=== PATIENT | male | born 1960 | race Caucasian/White ===

== ENCOUNTER 2016-07-03 06:22 | Observation (INO) | payer OTHER ==
[~2016-07-03] VITALS: Ht 175.3 cm; Wt 81.7 kg
[~2016-07-03 06:22] MED LIST: CICL160A INH; FRS/40 PO; FURO40TA3 PO; IPRASOL4 INH; LACTATED RINGER'S 1000ML 1,000 ML IV SCH; LACTATED RINGER'S 1000ML IV SCH; LEDI1TAB PO; LISI-729 PO; MAGN1TAB19 PO; MISSING PHYSICIAN SIGNATURE ON ORDER SCH; MTR/600 PO; PARO1TAB27 PO; POTA20TA16 PO; VANCOMYCIN 1GM/270ML NSS 270 ML IV SCH; VANCOMYCIN 1GM/270ML NSS IV SCH; VITA60003 TOP
[2016-07-03 06:42] VITALS: BP 119/78; PULSE 66; TEMP 36.3; O2SAT 97; Ht 175.3 cm; Wt 81.7 kg
[2016-07-03] MEDS ORDERED: LIDOCAINE HCL 1% 20 ML VIAL ONE ×2 (07:20→07:21)
[2016-07-03] MEDS ORDERED: BACITRACIN 50000 UNIT VIAL ONE (07:20)
[2016-07-03] MEDS ORDERED: BACITRACIN OINT 0.9 GM PKT ONE (07:20)
[2016-07-03] MEDS ORDERED: FENTANYL CITRATE INJ 50 MCG/1 ML 2 ML VIAL ONE (08:36)
[2016-07-03] MEDS ORDERED: MIDAZOLAM HCL 5 MG/ML 1 ML VIAL ONE (08:36)
--- NOTE | 2016-07-03 09:28 | Procedure Note ---
Pre-Mod Sedation Assessment General Date of Moderate Sedation: Jul 03, 2016. Vital Signs: Vital Signs Past 12 Hours Date Time Temp Pulse Resp B/P Pulse Ox O2 Delivery O2 Flow Rate FiO2 07/03/16 06:42 36.3 66 22 119/78 97 Review Cardiovascular: regular rate, rhythm Abdomen: normal bowel sounds Lungs: lungs clear Pre-Sedation Airway Assessment Oral Cavity: Dentures Smoking Status: Current Every Day Smoker Procedure Planning Contraindications-for Mod Sed: None Yes Notes The planned sedation has been discussed with the patient and consent obtained. I have identified the patient, determined the appropriateness of sedation and have assessed the patient immediately prior to the procedure. All medicine(s) and interventions are by my order.
--- NOTE | 2016-07-03 10:48 | Procedure Note ---
Post-Mod Sedation Assessment General Date of Moderate Sedation Jul 03, 2016. Vital Signs: Vital Signs Past 12 Hours Date Time Temp Pulse Resp B/P Pulse Ox O2 Delivery O2 Flow Rate FiO2 07/03/16 10:40 65 20 102/69 95 Room Air 07/03/16 06:42 36.3 66 22 119/78 97 Review - Discharge Criteria Vital Signs Stable: Yes Alert/Oriented/Conversant: Yes Returned to Baseline Mental St: Yes Nausea Absent/Minimal: Yes Pain/Discomfort/Absent/Minimal: Yes Normal/Baseline Respirations: Yes Active Bleeding?: No
--- NOTE | 2016-07-03 10:50 | Cardiology Procedure Brief Nt ---
Preliminary Cardiology Note Procedure Date Jul 03, 2016. Pre-Procedure Diagnosis nonischemic cardiomyopathy Post-Procedure Diagnosis same Procedure(s) Performed Left subclavian venogram Dual-chamber ICD implantation Form [employer]ter [employer] Forms Dr. Hidalgo Manager Process Improvement(s) none Estimated Blood Loss 100 cc Preliminary Findings Good lead position, good measurements Recommendations Monitor overnight Specimens None Anesthesia local with sedation Complication(s) None Disposition Health Clinician recovery
[2016-07-03] MEDS ORDERED: ACETAMINOPHEN 325 MG TAB PO PRN (11:00)
[2016-07-03] MEDS ORDERED: KETOROLAC TROMETHAMINE 10 MG TAB PO PRN (11:00)
[2016-07-03] MEDS ORDERED: IV FLUIDS COMPLETED PRN (12:45)
--- NOTE | 2016-07-03 13:05 | OPERATIVE REPORT ---
DATE OF OPERATION: 07/03/2016 AMBULATORY OPERATIVE REPORT PREOPERATIVE DIAGNOSES: 1. Ischemic cardiomyopathy. 2. Congestive heart failure. 3. Sinus bradycardia. POSTOPERATIVE DIAGNOSES: Same. PROCEDURE: 1. Left subclavian venogram. 2. Dual-chamber ICD implantation. SURGEON: Bret Hidalgo MD. ANESTHESIA: Local with sedation. HISTORY: This is a 56-year-old male, incarcerated, who has a history of non-Hodgkin's lymphoma and longstanding congestive heart failure and left ventricular dysfunction. He has a left ventricular ejection fraction of 20%, has class II congestive heart failure symptoms. He has failed attempts at treatment with heart failure medications due to hypotension, he is currently on low dose lisinopril. His heart rate is somewhat low, which may be one of the reasons he has difficulty with beta blockade. He is, therefore, being brought to laboratory for ICD implantation for primary prevention of sudden cardiac , a dual-chamber pacemaker will be used in hopes of maintaining his heart rate and allowing use of beta blockade. After obtaining informed consent for the procedure, he was brought to the laboratory on the morning of 07/03/2016, being NPO after midnight. He was identified in the laboratory, prepped and draped in standard sterile manner for left-sided ICD implantation. The left prepectoral region was anesthetized with 1% lidocaine local anesthetic and left subclavian venipuncture was attempted, this was not successful, therefore, dye was injected via the left arm IV site to opacify the left subclavian vein. Once the left subclavian vein was identified, venous access was obtained by percutaneous technique and a guidewire placed through the left subclavian vein into the superior vena cava. The area was further infiltrated with 1% lidocaine local anesthetic and a 5 cm incision was made parallel to the left clavicle and 2 cm below it and carried down to the anterior pectoralis fascia. An ICD pocket was formed by blunt dissection anterior to the pectoralis fascia and a bacitracin-soaked sponge (50,000 units in 50 mL normal saline solution) was placed in the pocket. A 10.5-Nepales[place] Medtronic lead introducer was placed over the guidewire into the left subclavian vein, the dilator and guidewire were removed, and a bipolar dual-coil active fixation steroid-tipped ventricular lead was advanced through the introducer into the superior vena cava. A guidewire was placed through the introducer and introducer stripped away from lead and guidewire. An 8-[place] Medtronic lead introducer was placed over the guidewire into the left subclavian vein, the dilator and guidewire were removed, and a bipolar active fixation steroid-tipped atrial lead was advanced through introducer into the superior vena cava. The guidewire was placed through the introducer and introducer stripped away from lead and guidewire. Using a curved stylette, the ventricular lead was advanced through the right ventricular outflow tract into the pulmonary artery, and then using a straight stylette, was positioned in the right ventricular apex. Once in position, the ventricular pacing threshold was evaluated in bipolar configuration at a pulse width of 0.5 milliseconds. The final ventricular pacing threshold was 0.5 volts with a current of 1.4 milliamp, 5-volt lead impedance was 384 ohms, and R-waves were sensed at 5.5 millivolts. Diaphragmatic pacing was not present with a 10 volt bipolar output. The atrial lead was positioned in the region of the atrial appendage and a screw extended fixing the lead in position. The atrial pacing threshold was evaluated in bipolar configuration at a pulse width of 0.5 milliseconds. Final atrial pacing threshold was 0.9 volts with a current of 1.9 milliamp, 5-volt lead impedance was 549 ohms, and P-waves were sensed at 5.6 millivolts. Diaphragmatic pacing was not present with a 10 volt bipolar output. Once leads were in position, they were attached to the anterior pectoralis fascia using 2 sutures of 2-0 silk around each lead collar. The bacitracin-soaked sponge was removed from the pocket, there was a fair amount of bleeding from the venous insertion site, therefore, a pursestring suture of 2-0 Vicryl was placed around the venous insertion site to control backbleeding. There was also a fair amount of oozing from the pocket, therefore, Jorge was distributed in the pocket to help clotting. The ICD was then placed in the pocket with the leads coiled beneath it and the incision was closed with a running double subcutaneous closure of 3-0 Vicryl, followed by running subcuticular skin closure of 4-0 Vicryl. Bacitracin ointment was placed on incision and a pressure dressing applied. The patient tolerated the procedure well, there were no complications, and estimated blood loss was 100 mL. The patient was transferred to the civil laboratory technician recovery room and later will be transferred to telemetry. The atrial lead is a Medtronic model 5076, serial #[id number], and is a bipolar active fixation steroid-tipped MRI compatible lead. The ventricular lead is a Medtronic model 6947M, serial #[id number], and is a bipolar active fixation steroid-tipped dual-coil ICD lead. The ICD is a Medtronic Evera MRI XT DR Frazier, model MUFZ5R8, serial #[id number]. The ICD was reprogrammed in the laboratory to final settings. JARON
[2016-07-03 13:35] VITALS: BP 113/69; PULSE 63; TEMP 36.8; O2SAT 99
[2016-07-03] MEDS ORDERED: VANCOMYCIN INJ 1,000 MG in SODIUM CHLORIDE 0.9% 250ML 250 ML IV SCH (19:00)
[2016-07-04] MEDS ORDERED: CLR10 PO (01:46)
[2016-07-04] MEDS ORDERED: UMEC1INH INH (01:46)
[2016-07-04] MEDS ORDERED: PRVHFAIN INH (01:46)
[2016-07-04] MEDS ORDERED: LSN25 PO (01:46)
[2016-07-04] MEDS ORDERED: BUME1TAB PO (01:46)
[2016-07-04] MEDS ORDERED: LEVO-366 PO (02:32)
--- NOTE | 2016-07-04 08:41 | Discharge Summary ---
Discharge Summary Admission Date: Jul 03, 2016 at 10:54 Discharge Date: Jul 03, 2016 Primary Diagnosis: Ischemic cardiomyopathy Secondary Diagnoses/Problems: Medical Problems: (1) Acute bronchitis Status: Acute (2) Cardiomyopathy Status: Acute (3) Non-cardiac chest pain Status: Acute Procedures: Dual-chamber ICD implantation Discharge Instructions Last Recorded Wt (Kilograms): 81.65 Activity Recommendations: limitations as noted below Diet At Discharge: resume previous diet Allergies: Coded Allergies: Penicillins (Verified Allergy, Unknown, UNKNOWN, 07/04/16) Additional Instructions: ACTIVITY RECOMMENDATIONS: * Do not raise affected arm over head for 2 weeks. SPECIAL CARE INSTRUCTIONS: * If bleeding occurs, apply direct pressure to area for 5 minutes. * Call your doctor if you have severe pain, fever, drainage or bleeding at site. * Keep dressing on and dry for 48 hours then remove. * Keep any scheduled doctor's appointment. * Implant Card - hand held device with website information given. SKIN IRRITATION: * You may experience some redness and/or swelling in the area where radiation was administered. If any skin irritation occurs, please contact your family physician. FOLLOW UP VISIT: Keep any scheduled doctor appointments. Special Care: Call your doctor if: * Temperature above 101 degrees * Pain not relieved by pain medicine ordered * There is increased drainage or redness from any incision * You have any unanswered questions or concerns. Avoid all tobacco products. If you need help to stop smoking, call [place]'s FREE QUITLINE at . This is a free call. Admission HPI This is an incarcerated 56-year-old gentleman who was referred for evaluation for ICD implantation for cardiomyopathy. We have essentially no records, he is reported as having either Hodgkin's or non-Hodgkin's lymphoma, as well as a history of congestive heart failure and left ventricular dysfunction. He is reported as having an ejection fraction of 20%, but does not have a lot of heart failure symptoms but does have difficulty with strenuous exertion and is at least class II in terms of heart failure symptoms. He had failed attempts at treatment with medications due to hypotension, he is currently on lisinopril in an attempt to get him back on heart failure medications. He seems to tolerating that well at low dose. He has never had lightheadedness, dizziness or palpitations and reports no syncope or presyncope. Admission Physical Exam Constitutional: Alert, cooperative and in no distress. HEENT: Unremarkable Neck: No jugular venous distention, carotid pulses are normal and equal bilaterally without bruits. Pulmonary: Clear to auscultation bilaterally. Cardiac: Regular rhythm with no murmur, gallop or rub. Abdomen: Soft, nontender with normal bowel sounds. Extremities: No edema. Distal pulses intact. Neurologic: No focal findings. Gait is steady. Skin: No rash, ecchymoses or petechiae. Hospital Course Patient is a 56-year-old male with ischemic cardiomyopathy and class II congestive heart failure who underwent dual-chamber ICD implantation on 07/03/[address] Hidalgo. He tolerated the procedure well, but he subsequently signed out AMA later that evening. He did not receive the adequate post-operative antibiotics, a chest x-ray was unable to be obtained to check for lead placement or pneumothorax, and his device was unable to be interrogated prior to the patient leaving AMA. Total time spent on discharge = This includes examination of the patient, discharge planning, medication reconciliation, and communication with other providers.
[2016-07-04] MEDS ORDERED: FUROSEMIDE 40 MG TAB PO SCH (09:00)
[2016-07-04] MEDS ORDERED: POTASSIUM CHLORIDE 20 MEQ TABCR PO SCH (09:00)
[2016-07-04] MEDS ORDERED: LISINOPRIL 2.5 MG TAB PO SCH (09:00)
[2016-07-04] MEDS ORDERED: PAROXETINE 20 MG TAB PO SCH (09:00)
== END 2016-07-03 14:30 ==
LOC: C.ACU 06:22 → C.2E 10:54
PROVIDERS: ADMIT Internal Medicine Cardiovascular Disease; ATTEND Internal Medicine Cardiovascular Disease
DX: I25.5 Ischemic cardiomyopathy (principal); I50.9 Heart failure, unspecified; R00.1 Bradycardia, unspecified; J43.9 Emphysema, unspecified; Z88.0 Allergy status to penicillin; Z85.71 Personal history of Hodgkin lymphoma

== ENCOUNTER 2016-07-03 23:54 | Emergency (ER) | payer OTHER ==
[~2016-07-03] VITALS: Ht 175.3 cm; Wt 82.0 kg
[~2016-07-03 23:54] MED LIST changes: -LACTATED RINGER'S 1000ML 1,000 ML IV SCH; -LACTATED RINGER'S 1000ML IV SCH; -MISSING PHYSICIAN SIGNATURE ON ORDER SCH; -VANCOMYCIN 1GM/270ML NSS 270 ML IV SCH; -VANCOMYCIN 1GM/270ML NSS IV SCH
[2016-07-04 00:04] VITALS: TEMP 39; Ht 175.3 cm; Wt 82.0 kg
[2016-07-04] MEDS ORDERED: ALBUT/IPRATROP 3MG/0.5MG NEB 3 ML VIAL INH STA (00:35)
--- NOTE | 2016-07-04 00:42 | EMERGENCY ROOM VISIT NOTE ---
History Report prepared by Ronal: Jeff Lyman Under the Supervision of: Dr. Jose Moon D.O. First contact with patient: 00:30 Chief Complaint: FLU LIKE SX Stated Complaint: FEVER,CHILLS,RESPIRATORY History of Present Illness The patient is a 56 year old male who presents to the Emergency Room with complaints of a fever that the patient first noticed at 2130, three hours prior to arrival. The patient had surgery to place a defibrillator this morning, and was then discharged back to the correctional facility where he [facility]. The patient is also experiencing a persistent cough. This is not unusual with his history of emphysema and chronic obstructive pulmonary disease. He received a breathing treatment at the [facility] at 2230, two hours prior to arrival. He does have a history of one episode of pneumonia. Source of History: patient Onset: Three hours PRESSURE TESTER Position: other (Global) Quality: other (Fever) Associated Symptoms: + cough Review of Systems See HPI for pertinent positives and negatives. A total of ten systems were reviewed and were otherwise negative. Past Medical & Surgical Medical Problems: (1) History of cancer (2) Nonischemic cardiomyopathy (3) Spinal stenosis Family History Patient reports no known family medical history. Social History Smoking Status: Current Every Day Smoker Alcohol Use: none Drug Use: none Marital Status: single Housing Status: other Occupation Status: other Current/Historical Medications Scheduled Bumetanide (Bumex), 2 MG PO BID Ciclesonide (Alvesco), 1 PUFF INH BID Lisinopril (Lisinopril), 2.5 MG PO DAILY Magnesium Oxide (Mg Supplement (Magnesium Oxide), 800 MG PO DAILY Paroxetine (Paxil), 20 MG PO DAILY Potassium Ext Rel (Klor-Con), 40 MEQ PO BID Umeclidinium Mcdermott (Incruse Ellipta), 1 PUFF INH DAILY Scheduled PRN Albuterol (Ventolin Hfa), 2 PUFFS INH QID PRN for Shortness of Breath Ibuprofen (Ibuprofen), 600 MG PO BID PRN for Pain Ipratropium-Albuterol (Duoneb), 1 TREATMENT INH BID PRN for Shortness of Breath Loratadine (Claritin), 10 MG PO DAILY PRN for ALLERGIC REACTION Vitamin E (Topical) (E-Cream), 1 APPLN TOP DAILY PRN for IRRITATION Allergies Coded Allergies: Penicillins (Verified Allergy, Unknown, UNKNOWN, 3/17/17) Physical Exam Vital Signs Date Time Temp Pulse Resp B/P Pulse Ox O2 Delivery O2 Flow Rate FiO2 07/04/16 02:23 75 22 95/66 92 Room Air 07/04/16 01:41 80 20 91 Room Air 07/04/16 01:15 90 07/04/16 01:15 78 16 112/76 95 Room Air 07/04/16 01:05 98 Room Air 07/04/16 00:04 39.0 84 20 133/87 97 Room Air Physical Exam GENERAL: Awake, alert, well-appearing, in no distress HENT: Normocephalic, atraumatic. Oropharynx unremarkable. EYES: Normal conjunctiva. Sclera non-icteric. NECK: Supple. No nuchal rigidity. FROM. No JVD. RESPIRATORY: Rhonchi bilaterally. CARDIAC: Regular rate, normal rhythm. Extremities warm and well perfused. Pulses equal. CHEST: There is a surgical site present over the left chest, clean, dry, intact , and bandaged. There is an area of swelling below the site. ABDOMEN: Soft, non-distended. No tenderness to palpation. No rebound or guarding. No masses. RECTAL: Deferred. MUSCULOSKELETAL: Chest examination reveals no tenderness. The back is symmetrical on inspection without obvious abnormality. There is no CVA tenderness to palpation. No joint edema. LOWER EXTREMITIES: Calves are equal size bilaterally and non-tender. No edema. No discoloration. NEURO: Normal sensorium. No sensory or motor deficits noted. SKIN: No rash or jaundice noted. Medical Decision & Procedures ER Provider Diagnostic Interpretation: X ray results as stated below per my interpretation and radiologist interpretation. Other radiology results as stated below per my review and radiologist interpretation CHEST X-RAY: Pacemaker in good position and intact, slight increased pulmonary markings bilateral lower lobes. Laboratory Results 07/04/16 00:50 Red Blood Count 3.91, Mean Corpuscular Volume 90.0, Mean Corpuscular Hemoglobin 31.7, Mean Corpuscular Hemoglobin Concent 35.2, Mean Platelet Volume 9.5, Neutrophils (%) (Auto) 75.8, Lymphocytes (%) (Auto) 15.0, Monocytes (%) (Auto) 7.9, Eosinophils (%) (Auto) 0.9, Basophils (%) (Auto) 0.1, Neutrophils # (Auto) 5.12, Lymphocytes # (Auto) 1.01, Monocytes # (Auto) 0.53, Eosinophils # (Auto) 0.06, Basophils # (Auto) 0.01 07/04/16 00:50 Test 07/04/16 00:50 07/04/16 01:05 07/04/16 01:38 White Blood Count 6.75 K/uL (4.8-10.8) Red Blood Count 3.91 M/uL (4.7-6.1) Hemoglobin 12.4 g/dL (14.0-18.0) Hematocrit 35.2 % (42-52) Mean Corpuscular Volume 90.0 fL (80-100) Mean Corpuscular Hemoglobin 31.7 pg (25-34) Mean Corpuscular Hemoglobin Concent 35.2 g/dl (32-36) Platelet Count 70 K/uL (130-400) Mean Platelet Volume 9.5 fL (7.4-10.4) Neutrophils (%) (Auto) 75.8 % Lymphocytes (%) (Auto) 15.0 % Monocytes (%) (Auto) 7.9 % Eosinophils (%) (Auto) 0.9 % Basophils (%) (Auto) 0.1 % Neutrophils # (Auto) 5.12 K/uL (1.4-6.5) Lymphocytes # (Auto) 1.01 K/uL (1.2-3.4) Monocytes # (Auto) 0.53 K/uL (0.11-0.59) Eosinophils # (Auto) 0.06 K/uL (0-0.5) Basophils # (Auto) 0.01 K/uL (0-0.2) RDW Standard Deviation 53.6 fL (36.4-46.3) RDW Coefficient of Variation 16.2 % (11.5-14.5) Immature Granulocyte % (Auto) 0.3 % Immature Granulocyte # (Auto) 0.02 K/uL (0.00-0.02) Anion Gap 8.0 mmol/L (3-11) Est Creatinine Clear Calc Drug Dose 103.0 ml/min Estimated GFR () 116.2 Estimated GFR (Non- 100.3 BUN/Creatinine Ratio 20.7 (10-20) Calcium Level 8.0 mg/dl (8.5-10.1) Total Bilirubin 1.4 mg/dl (0.2-1) Direct Bilirubin 0.6 mg/dl (0-0.2) Aspartate Amino Transf (AST/SGOT) 55 U/L (15-37) Alanine Aminotransferase (ALT/SGPT) 26 U/L (12-78) Alkaline Phosphatase 75 U/L (45-117) Total Protein 5.4 gm/dl (6.4-8.2) Albumin 3.2 gm/dl (3.4-5.0) Urine Color YELLOW Urine Appearance CLEAR (CLEAR) Urine pH 8.0 (4.5-7.5) Urine Specific [place] 1.013 (1.000-1.030) Urine Protein NEG (NEG) Urine Glucose (UA) NEG (NEG) Urine Ketones NEG (NEG) Urine Occult Blood NEG (NEG) Urine Nitrite NEG (NEG) Urine Bilirubin NEG (NEG) Urine Urobilinogen NEG (NEG) Urine Leukocyte Esterase NEG (NEG) Bedside Lactic Acid Venous 1.33 mmol/L (0.90-1.70) Laboratory results reviewed by me Medications Administered Medications (Trade) Dose Ordered Sig/María Route Start Time Stop Time Status Last Admin Dose Admin Albuterol/ Ipratropium (Duoneb) 3 ml NOW STAT INH 07/04/16 00:35 07/04/16 00:38 DC 07/04/16 00:35 3 ML ECG Indication: other (Fever) Rate (beats per minute): 89 Rhythm: sinus rhythm Findings: other (LAD, poor R-wave progression in precordium) ED Course 0033: The patient was evaluated in room B6. A complete history and physical exam was performed. 0035: Ordered Duoneb 3 mL INH. 0147: I checked on the patient at this time, he was resting in bed. 0156: I evaluated the documentation from the patient's defibrillator placement at this time. Dr. Hidalgo placed the defibrillator. I will contact him to discuss the patient's case. 0204: I discussed the case with Dr. Crespo - Cardiology at this time. He is awake of the patient's evaluation. Medical Decision Differential diagnosis includes: pneumonia, upper respiratory infection, and early sepsis. Patient remained in stable condition patient has no evidence of septic shock at this time. I have discussed the case with the cardiology group at 2 AM. I do not suspect a pouch infection at this time. Patient is a COPD patient likely has bronchitis at this time. I we will treat the patient with antibiotics empirically and the patient will be returned to the retirement. Consults Time Called: [phone] Consulting Physician: Dr. Crespo - Cardiology Returned Call: [phone] I discussed the case with Dr. Crespo - Cardiology at this time. He is awake of the patient's evaluation. Impression Primary Impression: Acute bronchitis Additional Impression: Chronic obstructive pulmonary disease Scribe Attestation The scribe's documentation has been prepared under my direction and personally reviewed by me in its entirety. I confirm that the note above accurately reflects all work, treatment, procedures, and medical decision making performed by me. Departure Information Dispostion Home / Self-Care Prescriptions Levofloxacin (Levaquin) 500 Mg Tab 500 MG PO DAILY for 9 Days, #10 TAB Prov: Jose Moon, DO 07/04/16 Referrals Tony Roman PA-C (PCP) Patient Instructions Bronchitis Acute, My [facility] Additional Instructions Follow-up primary care physician; continue antibiotics return if worsening symptoms or follow up with automotive software engineer as scheduled next week Problem Qualifiers Primary Impression: Acute bronchitis Bronchitis organism: unspecified organism Qualified Codes: J20.9 - Acute bronchitis, unspecified Additional Impression: Chronic obstructive pulmonary disease COPD type: emphysema Emphysema type: unspecified Qualified Codes: J43.9 - Emphysema, unspecified
[2016-07-04 01:05] VITALS: O2SAT 98
[2016-07-04 01:18] LABS: BASO % 0.1 %; BASO ABS # 0.01 K/uL (0-0.2); COMPLETE YES; EOS % 0.9 %; HEMATOCRIT 35.2 % (42-52); IG% 0.3 %; LYMPH ABS # 1.01 K/uL (1.2-3.4); MEAN CORPUSCULAR HEMOGLOBIN 31.7 pg (25-34); MEAN CORPUSCULAR HGB CONC 35.2 g/dl (32-36); MEAN PLATELET VOLUME 9.5 fL (7.4-10.4); MONO % 7.9 %; NEUT % 75.8 %; PLATELET COUNT 70 K/uL (130-400); RED BLOOD COUNT 3.91 M/uL (4.7-6.1); WHITE BLOOD COUNT 6.75 K/uL (4.8-10.8)
[2016-07-04 01:39] LABS: BUN/CREATININE RATIO 20.7 (10-20); CREATININE 0.82 mg/dl (0.60-1.40); POTASSIUM 3.9 mmol/L (3.5-5.1)
[2016-07-04 01:43] LABS: URINE APPEARANCE CLEAR (CLEAR); URINE BILIRUBIN NEG (NEG); URINE COLOR YELLOW; URINE NITRITE NEG (NEG); URINE SPECIFIC GRAVITY 1.013 (1.000-1.030); UROBILINOGEN NEG (NEG); ZZUR CULT IF INDIC CLEAN CATCH NO
[2016-07-04] MEDS ORDERED: LSN25 PO (01:46)
[2016-07-04] MEDS ORDERED: BUME1TAB PO (01:46)
[2016-07-04] MEDS ORDERED: PRVHFAIN INH (01:46)
[2016-07-04] MEDS ORDERED: UMEC1INH INH (01:46)
[2016-07-04] MEDS ORDERED: CLR10 PO (01:46)
[2016-07-04 01:53] LABS: MANUAL MICROSCOPIC REQUIRED? NO; REVIEW REQ? NO
[2016-07-04] MEDS ORDERED: LEVOFLOXACIN 250 MG TAB PO ONE (02:15)
[2016-07-04 02:23] VITALS: BP 95/66; PULSE 75; O2SAT 92
[2016-07-04] MEDS ORDERED: LEVO-366 PO (02:32)
--- NOTE | 2016-07-04 07:17 | DIAGNOSTIC IMAGING REPORT ---
SINGLE VIEW CHEST CLINICAL HISTORY: Fever. Sepsis. FINDINGS: An AP, portable, upright chest radiograph is compared to study dated 03/01/2016. Correlation is made with chest CT dated 08/30/2015. The examination is degraded by portable technique and patient rotation. A 2-lead cardiac AICD is new from previous and partially obscures the left mid chest. Leads project over the right atrial appendage and the right ventricle. The heart is enlarged and there is atherosclerotic calcification of thoracic aorta. The pulmonary vasculature is mildly congested. Mild emphysema is suspected. There are small pleural effusions with bibasilar opacities. No pneumothorax is seen. The skeletal structures are osteopenic. The bony thorax is grossly intact. IMPRESSION: 1. Cardiomegaly and AICD. There is evidence of congestive failure. 2. Pleural effusions with bibasilar airspace opacities. This likely represents atelectasis. Correlate clinically for evidence of superimposed pneumonia. Electronically signed by: Demetrius Lyons M.D. 07/04/2016 7:16 AM Dictated Date/Time: 07/04/2016 7:14 AM
== END 2016-07-04 02:54 | disposition home or self-care (01) ==
LOC: C.EDB 23:55
DX: J20.9 Acute bronchitis, unspecified (principal); J44.0 Chronic obstructive pulmonary disease with (acute) lower respiratory infection; Z85.9 Personal history of malignant neoplasm, unspecified; F17.200 Nicotine dependence, unspecified, uncomplicated; Z88.0 Allergy status to penicillin

== ENCOUNTER 2016-07-19 21:45 | Emergency (ER) | payer OTHER ==
[~2016-07-19] VITALS: Ht 175.3 cm; Wt 81.9 kg
[~2016-07-19 21:45] MED LIST changes: +BUME1TAB PO; +CLR10 PO; -FRS/40 PO; -FURO40TA3 PO; -LEDI1TAB PO; -LISI-729 PO; +LSN25 PO; +PRVHFAIN INH; +UMEC1INH INH
[2016-07-19 21:49] VITALS: TEMP 36.7; Ht 175.3 cm; Wt 81.9 kg
[2016-07-19] MEDS ORDERED: SPIR25TA PO (22:06)
--- NOTE | 2016-07-19 22:35 | DIAGNOSTIC IMAGING REPORT ---
CHEST ONE VIEW PORTABLE CLINICAL HISTORY: Pain over pacemaker COMPARISON STUDY: Chest radiograph July 04, 2016. FINDINGS: A dual lead left subclavian pacemaker/AICD is in place. Leads are unchanged in position. Moderate cardiomegaly is unchanged. There is no pneumothorax or pleural effusion. There is no evidence of pulmonary edema. Bibasilar opacities have improved since exam of July 04, 2016. IMPRESSION: 1. Interval improvement in bibasilar opacities since exam of July 04, 2016. 2. Stable moderate cardiomegaly. No evidence of pulmonary edema. Electronically signed by: Cristofer Bucio M.D. 07/19/2016 10:34 PM Dictated Date/Time: 07/19/2016 10:33 PM
--- NOTE | 2016-07-19 22:49 | EMERGENCY ROOM VISIT NOTE ---
History Report prepared by Ronal: Claudia Orantes Under the Supervision of: Dr. Félix Cheney D.O. 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 He had an ICD placed on 07/03/16. The patient reports numbness and tingling down his left arm for the past 2 hours. He has also been experiencing burning pain around the ICD. He states that he has pain when he lies on his side and has been sleeping on either his back or his stomach. The patient rates his current pain as a 6/10 in severity. 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 Review of Systems See HPI for pertinent positives & negatives. A total of 10 systems reviewed and were otherwise negative. Past Medical & Surgical Medical Problems: (1) History of cancer (2) Nonischemic cardiomyopathy (3) Spinal stenosis Family History Patient reports no known family medical history. Social History Smoking Status: Current Every Day Smoker Alcohol Use: none Drug Use: none Marital Status: single Housing Status: other (incarcerated) Occupation Status: other (incarcerated) Current/Historical Medications Scheduled Bumetanide (Bumex), 2 MG PO BID Ciclesonide (Alvesco), 1 PUFF INH BID Lisinopril (Lisinopril), 2.5 MG PO DAILY Magnesium Oxide (Mg Supplement (Magnesium Oxide), 800 MG PO DAILY Paroxetine (Paxil), 20 MG PO DAILY Potassium Ext Rel (Klor-Con), 40 MEQ PO BID Spironolactone (Aldactone), 25 MG PO DAILY Umeclidinium [place] (Incruse Ellipta), 1 PUFF INH DAILY Scheduled PRN Albuterol (Ventolin Hfa), 2 PUFFS INH QID PRN for Shortness of Breath Ibuprofen (Ibuprofen), 600 MG PO BID PRN for Pain Ipratropium-Albuterol (Duoneb), 1 TREATMENT INH BID PRN for Shortness of Breath Loratadine (Claritin), 10 MG PO DAILY PRN for ALLERGIC REACTION Vitamin E (Topical) (E-Cream), 1 APPLN TOP DAILY PRN for IRRITATION Allergies Coded Allergies: Penicillins (Verified Allergy, Unknown, UNKNOWN, 07/19/16) Physical Exam Vital Signs Date Time Temp Pulse Resp B/P Pulse Ox O2 Delivery O2 Flow Rate FiO2 07/19/16 22:58 61 18 111/66 99 Room Air 07/19/16 22:20 67 07/19/16 22:08 64 07/19/16 22:06 98 Room Air 07/19/16 21:49 36.7 75 20 99/61 98 Room Air Physical Exam CONSTITUTIONAL/VITAL SIGNS: Reviewed / noted above. GENERAL: Non-toxic in appearance. INTEGUMENTARY: Warm, dry, and [place]. HEAD: Normocephalic. EYES: without scleral icterus or trauma. ENT/OROPHARYNX: clear and moist. LYMPHADENOPATHY/NECK: Is supple without lymphadenopathy or meningismus. RESPIRATORY: Lungs clear and equal. CARDIOVASCULAR: Regular rate and rhythm. CHEST: Left chest wall reveals ICD in the left upper chest with some resolving ecchymosis. No evidence of infection or other abnormality. GI/ABDOMEN: Soft and nontender. No organomegaly or pulsatile mass. No rebound or guarding. Normal bowel sounds. EXTREMITIES: Warm and well perfused. BACK: No CVA tenderness. NEUROLOGICAL: Intact without focal deficits. PSYCHIATRIC: normal affect. MUSCULOSKELETAL: Normally developed with good muscle tone. Medical Decision & Procedures ER Provider Diagnostic Interpretation: Radiology results as stated below per my review and radiologist interpretation: CHEST ONE VIEW PORTABLE CLINICAL HISTORY: Pain over pacemaker COMPARISON STUDY: Chest radiograph July 04, 2016. FINDINGS: A dual lead left subclavian pacemaker/AICD is in place. Leads are unchanged in position. Moderate cardiomegaly is unchanged. There is no pneumothorax or pleural effusion. There is no evidence of pulmonary edema. Bibasilar opacities have improved since exam of July 04, 2016. IMPRESSION: 1. Interval improvement in bibasilar opacities since exam of July 04, 2016. 2. Stable moderate cardiomegaly. No evidence of pulmonary edema. Electronically signed by: Cristofer Bucio M.D. 07/19/2016 10:34 PM Dictated Date/Time: 07/19/2016 10:33 PM Laboratory Results Test 07/19/16 22:28 Bedside Troponin I 0.020 ng/ml (0-0.045) Laboratory results as stated above per my review. ECG Indication: chest pain Rate (beats per minute): 65 Rhythm: sinus rhythm Findings: PVC, no acute ischemic change Comparison ECG Date: 07/04/16 Change: no significant change ED Course 2206: Previous medical records were reviewed. The patient was evaluated in room B11B. A complete history and physical examination was performed. 2252: I reassessed the patient at this time. He is feeling better and resting comfortably. I discussed the results and treatment plan with the patient. I answered all pertaining questions that he had. He expressed understanding and verbalized agreement. The patient will be discharged back [facility]. Medical Decision The differential was considered includes acute myocardial infarction, acute coronary syndrome, myocarditis, pericarditis, pericardial effusions /tamponade, esophageal perforation, thoracic aortic dissection, pulmonary embolism, pneumonia, pneumothorax, pancreatitis, shingles, acute cholecystitis, perforated abdominal viscus. This is a 56-year-old male who presents to the ED with a chief complaint of burning sensation in his left chest primarily over his left ICD. The patient had this placed recently. The patient states that his symptoms seem to be worse when he lies on his left side. Exam was relatively unremarkable with exception of some improving ecchymosis over the left ICD site. An EKG shows a normal sinus rhythm. Troponin is negative. I-STAT labs are normal. The patient was told results. He is felt to be stable for discharge. Impression Primary Impression: Left-sided chest wall pain Scribe Attestation The scribe's documentation has been prepared under my direction and personally reviewed by me in its entirety. I confirm that the note above accurately reflects all work, treatment, procedures, and medical decision making performed by me. Departure Information Dispostion Home / Self-Care Referrals Tony Roman PA-C (PCP) Forms IMPORTANT VISIT INFORMATION Patient Instructions My [facility] Additional Instructions Follow-up with your doctor for further care and evaluation in 1-2 days. Return to the emergency department for worsening or new symptoms or any concerns. You have been examined and treated today on an emergency basis only. This is not a substitute for, or an effort to provide, complete comprehensive medical care. It is impossible to recognize and treat all injuries or illnesses in a single emergency department visit. It is therefore important that you follow up closely with your doctor. Call as soon as possible for an appointment.
[2016-07-19 22:58] VITALS: BP 111/66; PULSE 61; O2SAT 99
[2016-07-19 23:48] LABS: ISTAT CREATININE 0.7 mg/dl (0.6-1.3); ISTAT HEMOGLOBIN 11.9 g/dl (14.0-18.0); ISTAT IONIZED CALCIUM 1.19 mmol/l (1.12-1.32)
== END 2016-07-19 23:06 | disposition home or self-care (01) ==
LOC: C.EDB 21:48
DX: R07.89 Other chest pain (principal); I49.3 Ventricular premature depolarization; I42.9 Cardiomyopathy, unspecified; M48.00 Spinal stenosis, site unspecified; F17.200 Nicotine dependence, unspecified, uncomplicated; Z79.899 Other long term (current) drug therapy; Z85.9 Personal history of malignant neoplasm, unspecified; Z88.0 Allergy status to penicillin

== ENCOUNTER → 2016-11-10 | Outpatient (CLI) | payer OTHER ==
[~2016-11-10] MED LIST changes: +SPIR25TA PO
--- NOTE | 2016-11-10 11:59 | DIAGNOSTIC IMAGING REPORT ---
PET/CT CLINICAL HISTORY: 56-year-old male with history of lymphoma. TECHNIQUE: PET/CT was performed from the base of the skull through the pelvis following the intravenous administration of 11.81 mCi of F18-FDG. Non-contrast CT imaging was performed over the same range without breath-hold for attenuation correction of PET images and anatomic correlation, but not for primary interpretation as it is not of standard diagnostic quality. CT DOSE: 473.05 mGycm COMPARISON: Correlation made to CT chest from 08/30/2015. FINDINGS: HEAD AND NECK: Polypoid left maxillary sinus thickening. No FDG avid cervical lymphadenopathy or mass. Physiologic uptake in the palatine adenoidal lymphoid tissue. CHEST: Interval placement of a left subclavian implanted cardiac defibrillator with leads to the right atrium and right ventricular apex. Cardiomegaly. No FDG avid lymphadenopathy. Dependent opacities likely atelectasis. No abnormal metabolic uptake in the lungs. ABDOMEN/PELVIS: Soft tissue nodularity in the gastrohepatic region, which is photopenic and incompletely evaluated without intravenous contrast. This likely represents varices. Apparent focal increased FDG avidity in the central liver, which has a max SUV of 3.4. No convincing correlate on CT within the limitations of noncontrast technique. The spleen is not significantly enlarged and demonstrates background level FDG avidity. Otherwise physiologic distribution of FDG throughout the abdomen and pelvis. MUSCULOSKELETAL: No FDG avid or destructive osseous lesion. IMPRESSION: 1. No convincing evidence of FDG avid lymphadenopathy. No splenomegaly. 2. Apparent elevated focus of FDG avidity in the central liver. No denisa evidence of a correlate on anatomic imaging within limitations of noncontrast technique. This may relate to parenchymal heterogeneity rather than a focal lesion. Attention on follow-up and consideration for contrast-enhanced cross-sectional imaging if there is clinical concern. Electronically signed by: Slick Solano M.D. 11/10/2016 11:58 AM Dictated Date/Time: 11/10/2016 11:43 AM
== END ==
LOC: C.PET 08:59
PROVIDERS: ATTEND Family Medicine
DX: C80.1 Malignant (primary) neoplasm, unspecified (principal)

== ENCOUNTER → 2017-06-09 | Day surgery (SDC) | payer OTHER ==
[2017-06-03 07:36] VITALS: Ht 175.3 cm; Wt 80.9 kg
[~2017-06-09] VITALS: Ht 175.3 cm; Wt 80.9 kg
[~2017-06-09] MED LIST changes: +500ML BSS 0.3ML EPI 1:1000PF IRRIG ONE; +ACETAMINOPHEN 325 MG TAB PO PRN; +AMVISC PLUS 0.8ML SYRINGE INT OCU ONE; +ATROPINE SULFATE 0.1 MG/ML 5ML SYR IV PRN; +BSS FLUSH ONE; +CARV6.252 PO; -CICL160A INH; -CLR10 PO; +EpHEDrine SULFATE INJ 50 MG/ML AMP IV PRN; +EpINEphrine INJ 1MG/ML AMP 1 MG/ML AMP ONE; +HYDCR1CL TOP; +LACTATED RINGER'S 1000ML 500 ML IV SCH; +LEVA45AE INH; +LIDOCAINE 3.5% OPH GEL PER APPLICATION CHARGE ONE; +LIDOCAINE HCL 1% MPF 2 ML VIAL ONE; +MIDAZOLAM HCL 1 MG/ML 2ML VIAL ONE; +POVIDONE-IODINE OP SOLN 30 ML BTL ONE; +PROPARACAINE 0.5% OP SOLN PER DROP CHARGE OPL SCH; -PRVHFAIN INH; +TOBRAMYCIN/DEXAMETHASONE OPH OINT PER APPLN CHARGE ONE; -VITA60003 TOP
[2017-06-09] MEDS: PHENYLEPHRINE HCL 2.5% OP SOLN PER DROP CHARGE OPL SCH ×2 (11:31→11:36)
[2017-06-09] MEDS: TROPICAMIDE 1% OP SOLN PER DROP CHARGE OPL SCH ×2 (11:32→11:37)
[2017-06-09] MEDS: CYCLOPENTOLATE HCL 1% OP SOLN PER DROP CHARGE OPL SCH ×2 (11:33→11:38)
[2017-06-09] MEDS: KETOROLAC 0.5% OP SOLN PER DROP CHARGE OPL SCH ×2 (11:34→11:39)
[2017-06-09] MEDS: GATIFLOXACIN OP SOLN PER DROP CHARGE OPL SCH ×2 (11:35→11:45)
--- NOTE | 2017-06-09 11:39 | History & Physical Bridge - SC ---
H&P Re-Evaluation Bridge Note: I have examined the patient, reviewed the History & Physical and in the interval since the performance of the History & Physical I have noted the following changes of clinical significance: Diagnosis: Left Cataract Procedure: Left Cataract Removal with Lens Implant No changes noted
--- NOTE | 2017-06-09 12:11 | Discharge Instructions-SurgCtr ---
Discharge Instructions Date of Service Jun 09, 2017. Visit Reason for Visit: Cataract Left Eye Discharge Discharge Diagnosis / Problem: cataract Discharge Goals Goal(s): Improve function Activity Recommendations Activity Limitations: per Instructions/Follow-up section Anesthesia . Post Anesthesia Instructions: If you have had General Anesthesia or IV Sedation: * Do not drive today. * Resume driving when surgeon permits. * Do not make important decisions or sign legal documents today. * Call surgeon for: 1. Temperature elevations greater than 101 degrees F. 2. Uncontrollable pain. 3. Excessive bleeding. 4. Persistent nausea and vomiting. 5. Medication intolerance (nausea, vomiting or rash). * For nausea and vomiting use only clear liquids such as: tea, soda, bouillon until nausea subsides, then gradually increase diet as tolerated. * If you have any concerns or questions, call your surgeon's office. If physician is unavailable and it is an emergency, call 911 or go to the nearest emergency room. . Diet Recommendations Home Diet: resume previous diet Procedures Procedures Performed: Left Cataract Phacoemulsification With Intraocular Lens Implant Pending Studies Studies pending at discharge: no Medical Emergencies . Who to Call and When: Medical Emergencies: If at any time you feel your situation is an emergency, please call 911 immediately. . 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 . "Provider Documentation" section prepared by Yahir Veloz. .
--- NOTE | 2017-06-09 12:11 | [facility] Operative Report ---
Operative Report Date of Service Jun 09, 2017. Operative Report 1. PREOPERATIVE DIAGNOSIS: Cataract of the left eye. 2. POSTOPERATIVE DIAGNOSIS: Same. 3. PROCEDURE: Phacoemulsification with intraocular lens implantation of the left eye. SURGEON: Dr. Yahir Veloz. ANESTHESIA: Topical Lidocaine gel, 1% Non- Preserved intracameral Lidocaine, and monitored intravenous sedation. INDICATIONS FOR THE PROCEDURE: The patient is a 57 - year-old male with a history of cataract of the left eye causing significant visual impairment. The details of the proposed procedure were explained to the patient who asked appropriate questions and following discussion of all risks, benefits and alternatives agreed to have the procedure done. 4. OPERATION AND FINDINGS: DESCRIPTION OF PROCEDURE: After informed consent was obtained, the patient was brought to the Operating Room at the [facility]. The patient was placed in a supine position and then the left eye was prepped and draped in the usual sterile fashion for intraocular surgery. A drop of topical Lidocaine gel was placed in the operative eye. A wire lid speculum was then placed in the fornices. A corneal paracentesis was then created temporally. The Non-Preserved Lidocaine was then instilled into the anterior chamber. The anterior chamber was then pressurized with viscoelastic. A 2.0 mm clear corneal incision was then created temporally. A cystotome was inserted into the anterior chamber and used to create a tear in the anterior lens capsule. This capsular tear was then used to create a small flap and the flap was dragged in a counterclockwise direction in order to create a continuous curvilinear capsulorrhexis. Hydrodissection was accomplished with balanced salt solution. Phacoemulsification of the lens nucleus was then performed in a standard [id number] technique. The phaco time was 14 seconds with an average power of 7 %. The remaining cortical material was removed using irrigation aspiration. The capsular bag was then filled with viscoelastic. A [employer]ch [employer] Lomb MI60L +20.0 diopters lens was then loaded into the injector and injected into the capsular bag. The remaining viscoelastic was removed with the irrigation aspiration handpiece. The wound was hydrated and then checked and found to be watertight. The intraocular pressure was checked and found to be adequate. The wire lid speculum was removed and the patient's face was cleaned and dried. TobraDex ointment was placed in the inferior fornix. The patient was discharged to the Recovery Room having tolerated the procedure well. There were no complications. The patient will be seen tomorrow in the office for follow-up. I attest to the content of the Intraoperative Record and any orders documented therein. Any exceptions are noted below.
--- NOTE | 2017-06-09 12:35 | Anesthesia Progress Nt - [facility] ---
Anesthesia Post Op Note Date & Time Jun 09, 2017 at 12:35 Vital Signs Pain Intensity: 0 Vital Signs Past 12 Hours Date Time Temp Pulse Resp B/P (MAP) Pulse Ox O2 Delivery O2 Flow Rate FiO2 06/09/17 12:14 36.5 60 18 122/80 (94) 100 Room Air 06/09/17 11:27 36.6 70 20 115/65 (82) 98 Room Air Notes Mental Status: alert / awake / arousable, participated in evaluation Pt Amnestic to Procedure: Yes Nausea / Vomiting: adequately controlled Pain: adequately controlled Airway Patency, RR, SpO2: stable & adequate BP & HR: stable & adequate Hydration State: stable & adequate Anesthetic Complications: no major complications apparent
[2017-06-09 12:40] VITALS: BP 125/76; PULSE 65; O2SAT 100
== END | disposition home or self-care (01) ==
LOC: X.SURG 11:23
PROVIDERS: ATTEND Ophthalmology
DX: H26.9 Unspecified cataract (principal); I50.9 Heart failure, unspecified; J44.9 Chronic obstructive pulmonary disease, unspecified; M19.90 Unspecified osteoarthritis, unspecified site; I25.2 Old myocardial infarction; I25.10 Atherosclerotic heart disease of native coronary artery without angina pectoris; F17.200 Nicotine dependence, unspecified, uncomplicated; I10 Essential (primary) hypertension; Z95.810 Presence of automatic (implantable) cardiac defibrillator; Z85.72 Personal history of non-Hodgkin lymphomas; Z86.19 Personal history of other infectious and parasitic diseases; I42.9 Cardiomyopathy, unspecified

== ENCOUNTER → 2017-09-10 | Outpatient (CLI) | payer OTHER ==
[~2017-09-10] MED LIST changes: -500ML BSS 0.3ML EPI 1:1000PF IRRIG ONE; -ACETAMINOPHEN 325 MG TAB PO PRN; -AMVISC PLUS 0.8ML SYRINGE INT OCU ONE; -ATROPINE SULFATE 0.1 MG/ML 5ML SYR IV PRN; -BSS FLUSH ONE; -EpHEDrine SULFATE INJ 50 MG/ML AMP IV PRN; -EpINEphrine INJ 1MG/ML AMP 1 MG/ML AMP ONE; -LACTATED RINGER'S 1000ML 500 ML IV SCH; -LIDOCAINE 3.5% OPH GEL PER APPLICATION CHARGE ONE; -LIDOCAINE HCL 1% MPF 2 ML VIAL ONE; -MIDAZOLAM HCL 1 MG/ML 2ML VIAL ONE; +POTA-639 PO; -POTA20TA16 PO; -POVIDONE-IODINE OP SOLN 30 ML BTL ONE; -PROPARACAINE 0.5% OP SOLN PER DROP CHARGE OPL SCH; -TOBRAMYCIN/DEXAMETHASONE OPH OINT PER APPLN CHARGE ONE
== END ==
LOC: C.LABSPEC 16:06
PROVIDERS: ATTEND Internal Medicine Hematology
DX: R60.9 Edema, unspecified (principal); E87.6 Hypokalemia

== ENCOUNTER → 2017-11-13 | Outpatient (CLI) | payer OTHER ==
[~2017-11-13] MED LIST changes: +CICL160A INH; -HYDCR1CL TOP; +IPRA-64 INH; -IPRASOL4 INH; +LORA-554 PO; -MAGN1TAB19 PO; -POTA-639 PO; +POTA10CA28 PO
--- NOTE | 2017-11-13 13:00 | DIAGNOSTIC IMAGING REPORT ---
L EXTREMITY NONVASCULAR LIMITED CLINICAL HISTORY: KEFT AXILLA MASS mass TECHNIQUE: Ultrasound COMPARISON STUDY: None FINDINGS: Soft tissue mass versus atypical lymph node left axilla measuring 3 x 2.5 cm. Biopsy is suggested to exclude neoplasm. IMPRESSION: Soft tissue mass left axilla at the location of clinically palpable nodularity. Biopsy is suggested to exclude neoplasm. The above report was generated using voice recognition software. It may contain grammatical, syntax or spelling errors. Electronically signed by: Lee Gan M.D. 11/13/2017 12:59 PM Dictated Date/Time: 11/13/2017 12:56 PM
== END ==
LOC: C.ULTRBC 12:30
PROVIDERS: ATTEND Physician Assistant Medical
DX: R22.32 Localized swelling, mass and lump, left upper limb (principal)